=== PATIENT | male | born 1995 | race Hispanic/Latino ===

== ENCOUNTER 2024-08-05 03:59 | Emergency (ER) | payer BC ==
[~2024-08-05] VITALS: Ht 175.3 cm; Wt 104.3 kg
[2024-08-05 04:10] VITALS: PULSE 73; RESP 18; TEMP 97.6
[2024-08-05] MEDS ORDERED: POLYMYXIN B-TMP10 ML OP (04:23)
[2024-08-05] MEDS: KETOROLAC TROMETHAMINE 60 MG/2 ML VIAL IM ONE (04:34)
[2024-08-05 04:39] VITALS: BP 135/88; PULSE 73; RESP 18; TEMP 97.6; O2SAT 98
== END 2024-08-05 04:41 | disposition home or self-care (01) ==
LOC: FSED 04:18
DX: H10.9 Unspecified conjunctivitis (principal)
CPT/HCPCS: 99283; J1885